=== PATIENT | female | born 1990 | race Caucasian/White ===

== ENCOUNTER → 2023-05-16 10:47 | Outpatient (CLI) | payer OTHER, SELFPAY ==
--- NOTE | ~2023-05-16 | US_ITS ---
EXAMINATION: US OB transvaginal DATE: 05/16/2023 11:31 INDICATION: Spotting in first trimester. TECHNIQUE: Real-time transvaginal pelvic ultrasound was performed. COMPARISON: None. FINDINGS: The uterus measures 8.1 x 3.9 x 5.3 cm. There is an intrauterine gestational sac. A yolk sac is iden tified. The crown rump length measures 7 mm, which correlates with an estimated gestational ag e of 6 weeks and 4 day(s) (+/-) 4 day(s). heart motion is identified measuring 114 beats per mi nute (bpm) by M-mode Doppler. The right ovary measures 2.2 x 2.1 x 2.4 cm. The left ovary measures 2. 6 x 1.7 x 2.4 cm. There is no free fluid in the pelvis. IMPRESSION: 1. Single living intrauterine gestation with estimated date of delivery of 01/05/2024. Reviewed, dictated and finalized at location A. [facility] [employer] IMPRESSION: 1. Single living intrauterine gestation with estimated date of delivery of 01/04.
== END ==
PROVIDERS: PCP Advanced Practice Midwife; Visit Provider Advanced Practice Midwife
DX: O26.851 Spotting complicating pregnancy, first trimester (principal); Z3A.00 Weeks of gestation of pregnancy not specified
CPT/HCPCS: 76817